=== PATIENT | female | born 1960 | race American Indian/Alaskan Native ===

== ENCOUNTER 2018-11-01 09:22 | Emergency (ER) | payer MEDICARE ==
[2018-11-01 09:57] LABS: Basophils # (Auto) 0.1 K/mm3 (0.0-0.1); Basophils % (Auto) 0.8 % (0.0-1.8); Eosinophils # (Auto) 0.3 K/mm3 (0.0-0.4); Eosinophils % (Auto) 2.6 % (0.0-4.3); Hematocrit 34.1 % (30.3-42.9); Hemoglobin 11.3 gm/dl (10.1-14.3); Lymphocytes # (Auto) 4.3 K/mm3 (1.2-5.4); Lymphocytes % (Auto) 40.5 % (13.4-35.0); Mean Corpuscular HGB Conc 33 % (30-34); Mean Corpuscular Volume 78 fl (79-97); Monocytes # (Auto) 0.7 K/mm3 (0.0-0.8); Monocytes % (Auto) 6.6 % (0.0-7.3); Platelet Count 424 K/mm3 (140-440); Red Blood Count 4.38 M/mm3 (3.65-5.03); Red Cell Distribution Width 15.5 % (13.2-15.2)
[2018-11-01 10:09] LABS: BUN/Creatinine Ratio 13; Blood Urea Nitrogen 13 mg/dL (7-17); Calcium 9.4 mg/dL (8.4-10.2); Hemolysis Index 6
[2018-11-01 10:18] LABS: Amphetamine Screen,Urine PRESUMPTIVE NEGATIVE; Benzodiazepines Screen,Urine PRESUMPTIVE NEGATIVE; Cannabinoid Screen,Urine PRESUMPTIVE NEGATIVE; Cocaine Screen,Urine PRESUMPTIVE NEGATIVE; Methadone Screen,Urine PRESUMPTIVE NEGATIVE; Opiate Screen,Urine PRESUMPTIVE NEGATIVE
[2018-11-01 10:19] LABS: Bacteria,Urine 1+ /HPF (Negative); Bilirubin,Urine NEG (Negative); Blood,Urine NEG (Negative); Color,Urine Yellow (Yellow); Mucus,Urine FEW /HPF
[2018-11-01] MEDS ORDERED: IBUPROFEN PO ONE (15:27)
[2018-11-01] MEDS ORDERED: ULTRAM PO ONE (15:27)
--- NOTE | 2018-11-01 15:29 | Emergency Department Report ---
HPI - General Chief Complaint: Psych Time Seen by Provider: 11/01/18 15:12 - HPI HPI: Room 18 The patient is a 57-year-old female presenting with a chief complaint of back pain and scratching. The patient is a history of schizophrenia and was reportedly brought in by her niece because the niece states the patient is "scratching herself again." The niece is not present at bedside during my interview and when I asked the patient why she came to the emergency department she states she has chronic back pain from a remote injury that occasionally "fla res up." Patient denies suicidal or homicidal ideation. Patient denies visual or auditory hallucinations Location: [See above] Duration: [See above] Quality: [See above] Severity: [See above] Modifying factors: [see above] Context: [see above] Mode of transportation: [not driving] ED Past Medical Hx - Past Medical History Hx Hypertension: Yes Hx Diabetes: Yes Hx Psychiatric Treatment: Yes (BIPOLAR /SCHIZO) - Family History Family history: no significant - Social History Smoking Status: Current Every Day Smoker (3 cigarettes daily) Substance Use Type: None (denies illicit drug use) - Medications Home Medications: Home Medications Medication Instructions Recorded Confirmed Last Taken Type AtorvaSTATin 40 mg PO BID 11/14/15 11/14/15 11/13/[address] 500 mg PO BID 11/14/15 11/14/15 11/13/15 History Levemir Flextouch 10 units SUB-Q BID 11/14/15 11/14/15 11/13/15 History Lisinopril 10 mg PO DAILY 11/14/15 11/14/15 11/13/15 History Trifluoperazine HCl 5 mg PO HS 11/14/15 11/14/15 11/13/15 History Ziprasidone 80 mg PO BID 11/14/15 11/14/15 11/13/15 History Zolpidem 10 mg PO HS 11/14/15 11/14/15 11/13/15 History clonazePAM 1 mg PO HS 11/14/15 11/14/15 11/13/15 History glipiZIDE 10 mg PO DAILY 11/14/15 11/14/15 11/13/15 History hydrOXYzine 25 mg PO TID 11/14/15 11/14/15 11/13/15 History Ibuprofen [Motrin 800 MG tab] 800 mg PO Q8HR PRN #20 tablet 11/01/18 Unknown Rx traMADol [Ultram] 50 mg PO Q6HR PRN #10 tablet 11/01/18 Unknown Rx ED Review of Systems ROS: Stated complaint: PYSCH EVALUATE Other details as noted in HPI Constitutional: no symptoms reported Eyes: denies: eye pain ENT: denies: throat pain Respiratory: no symptoms reported Cardiovascular: denies: chest pain Endocrine: no symptoms reported Gastrointestinal: denies: abdominal pain Genitourinary: denies: dysuria Musculoskeletal: back pain Neurological: denies: headache Psychiatric: denies: auditory hallucinations, visual hallucinations, homicidal thoughts, suicidal thoughts Physical Exam - Physical Exam Vital Signs: Vital Signs 11/01/18 11/01/18 11/01/18 09:28 14:48 14:53 Temperature 98.4 F Pulse Rate 94 H 87 Respiratory 18 18 18 Rate Blood Pressure 104/69 112/71 [Left] O2 Sat by Pulse 100 100 Oximetry Physical Exam: GENERAL: The patient is well-developed well-nourished female lying on stretcher not appearing to be in acute distress. [] HEENT: Normocephalic. Atraumatic. Extraocular motions are intact. Patient has moist mucous membranes. NECK: Supple. Trachea midline CHEST/LUNGS: Clear to auscultation. There is no respiratory distress noted. HEART/CARDIOVASCULAR: Regular. There is no tachycardia. There is no gallop rub or murmur. ABDOMEN: Abdomen is soft, nontender. Patient has normal bowel sounds. There is no abdominal distention. SKIN: There is a chronic appearing linear abrasion with various scabs present the midline mid and lower back. No bleeding. There is no diaphoresis. NEURO: The patient is awake, alert, and oriented. The patient is cooperative. The patient has normal speech MUSCULOSKELETAL: There is no evidence of acute injury. ED Course Vital Signs 11/01/18 11/01/18 11/01/18 09:28 14:48 14:53 Temperature 98.4 F Pulse Rate 94 H 87 Respiratory 18 18 18 Rate Blood Pressure 104/69 112/71 [Left] O2 Sat by Pulse 100 100 Oximetry - Consultations Consultation #1: 11/01/18 16:58 Case discussed with mental health renewable energy consultant Lidia- patient does not meet inpatient criteria ED Medical Decision Making - Lab Data Result diagrams: 11/01/18 09:34 11/01/18 09:34 Laboratory Tests 11/01/18 11/01/18 11/01/18 09:34 09:34 09:34 WBC RBC Hgb Hct MCV MCH MCHC RDW Plt Count Lymph % (Auto) [place] % (Auto) Eos % (Auto) Baso % (Auto) Lymph # [place] # Eos # Baso # Seg Neutrophils % Seg Neutrophils # Sodium 142 Potassium 3.7 Chloride 100.3 Carbon Dioxide 30 Anion Gap 15 BUN 13 Creatinine 1.0 Estimated GFR > 60 BUN/Creatinine Ratio 13 Glucose 237 H Calcium 9.4 Urine Color Urine Turbidity Urine pH Ur Specific [place] Urine Protein Urine Glucose (UA) Urine Ketones Urine Blood Urine Nitrite Urine Bilirubin Urine Urobilinogen Ur Leukocyte Esterase Urine WBC (Auto) Urine RBC (Auto) U Epithel Cells (Auto) Urine Bacteria (Auto) Urine Mucus Salicylates < 0.3 L Urine Opiates Screen Urine Methadone Screen Acetaminophen < 5.0 L Ur Barbiturates Screen Ur Phencyclidine Scrn Ur Amphetamines Screen U Benzodiazepines Scrn Urine Cocaine Screen U Marijuana (THC) Screen Drugs of Abuse Note Plasma/Serum Alcohol 11/01/18 11/01/18 11/01/18 09:34 09:34 09:52 WBC 10.7 RBC 4.38 Hgb 11.3 Hct 34.1 MCV 78 L MCH 26 L MCHC 33 RDW 15.5 H Plt Count 424 Lymph % (Auto) 40.5 H [place] % (Auto) 6.6 Eos % (Auto) 2.6 Baso % (Auto) 0.8 Lymph # 4.3 [place] # 0.7 Eos # 0.3 Baso # 0.1 Seg Neutrophils % 49.5 Seg Neutrophils # 5.3 Sodium Potassium Chloride Carbon Dioxide Anion Gap BUN Creatinine Estimated GFR BUN/Creatinine Ratio Glucose Calcium Urine Color Yellow Urine Turbidity Clear Urine pH 6.0 Ur Specific [place] 1.026 Urine Protein 30 mg/dl Urine Glucose (UA) Neg Urine Ketones Neg Urine Blood Neg Urine Nitrite Neg Urine Bilirubin Neg Urine Urobilinogen 4.0 Ur Leukocyte Esterase Tr Urine WBC (Auto) 2.0 Urine RBC (Auto) 5.0 U Epithel Cells (Auto) 3.0 Urine Bacteria (Auto) 1+ Urine Mucus Few Salicylates Urine Opiates Screen Urine Methadone Screen Acetaminophen Ur Barbiturates Screen Ur Phencyclidine Scrn Ur Amphetamines Screen U Benzodiazepines Scrn Urine Cocaine Screen U Marijuana (THC) Screen Drugs of Abuse Note Plasma/Serum Alcohol < 0.01 11/01/18 09:52 WBC RBC Hgb Hct MCV MCH MCHC RDW Plt Count Lymph % (Auto) [place] % (Auto) Eos % (Auto) Baso % (Auto) Lymph # [place] # Eos # Baso # Seg Neutrophils % Seg Neutrophils # Sodium Potassium Chloride Carbon Dioxide Anion Gap BUN Creatinine Estimated GFR BUN/Creatinine Ratio Glucose Calcium Urine Color Urine Turbidity Urine pH Ur Specific [place] Urine Protein Urine Glucose (UA) Urine Ketones Urine Blood Urine Nitrite Urine Bilirubin Urine Urobilinogen Ur Leukocyte Esterase Urine WBC (Auto) Urine RBC (Auto) U Epithel Cells (Auto) Urine Bacteria (Auto) Urine Mucus Salicylates Urine Opiates Screen Presumptive negative Urine Methadone Screen Presumptive negative Acetaminophen Ur Barbiturates Screen Presumptive negative Ur Phencyclidine Scrn Presumptive negative Ur Amphetamines Screen Presumptive negative U Benzodiazepines Scrn Presumptive negative Urine Cocaine Screen Presumptive negative U Marijuana (THC) Screen Presumptive negative Drugs of Abuse Note Disclamer Plasma/Serum Alcohol Critical care attestation.: If time is entered above; I have spent that time in minutes in the direct care of this critically ill patient, excluding procedure time. ED Disposition Clinical Impression: Back pain Disposition: DC-01 TO HOME OR SELFCARE Is pt being admited?: No Does the pt Need Aspirin: No Condition: Stable Instructions: Chronic Back Pain (ED) Additional Instructions: Return to the emergency department immediately should you develop worsening symptoms, fever, inability to tolerate food or liquid or any other concerns. Prescriptions: Ibuprofen [Motrin 800 MG tab] 800 mg PO Q8HR PRN #20 tablet PRN Reason: Pain, Moderate (4-6) traMADol [Ultram] 50 mg PO Q6HR PRN #10 tablet PRN Reason: Pain Referrals: TEDDY PETERS MD [Primary Care Provider] - 3-5 Days [facility] [Outside] - 3-5 Days Time of Disposition: 17:00
[2018-11-01 18:48] VITALS: BP 117/52
== END 2018-11-01 19:03 | disposition home or self-care (01) ==
LOC: ED 09:22
DX: M54.89 Other dorsalgia (principal); I10 Essential (primary) hypertension; E11.9 Type 2 diabetes mellitus without complications; F20.9 Schizophrenia, unspecified; F31.9 Bipolar disorder, unspecified; F17.210 Nicotine dependence, cigarettes, uncomplicated; Z79.899 Other long term (current) drug therapy
CPT/HCPCS: 36415; 80048; 80307; 81001; 85025; 99284; G0480; 80320

== ENCOUNTER 2019-03-04 12:29 | Inpatient (IN) | payer MEDICARE ==
[2019-03-04] MEDS ORDERED: ATIVAN IM PRN (15:04)
[2019-03-04] MEDS ORDERED: BENADRYL IM PRN (15:05)
[2019-03-04] MEDS ORDERED: HYDROXYZINE 25 MG PO SCH (20:00)
[2019-03-04] MEDS ORDERED: D50W (25GM) Syringe IV PRN (20:31)
[2019-03-04] MEDS: AMBIEN PO SCH (21:10)
[2019-03-04] MEDS: VISTARIL PO SCH (21:10)
[2019-03-04] MEDS: GEODON PO SCH (21:10)
[2019-03-04] MEDS: HumuLIN R SUB-Q SCH (21:33)
[2019-03-04] MEDS ORDERED: TRIFLUOPERAZINE HCL 5 MG PO SCH (22:00)
[2019-03-04] MEDS ORDERED: HumuLIN R SUB-Q SCH (22:00)
[2019-03-04] MEDS ORDERED: ZOLPIDEM 10 MG PO SCH (22:00)
[2019-03-04] MEDS ORDERED: ZIPRASIDONE 80 MG PO SCH (22:00)
[2019-03-04] MEDS ORDERED: DIVALPROEX 500 MG PO SCH (22:00)
[2019-03-04] MEDS ORDERED: NON-FORMULARY (Clonazepam 1 MG) PO SCH (22:00)
[2019-03-05 01:37] LABS: Alanine Aminotransferase 9 units/L (7-56); Albumin 3.5 g/dL (3.9-5); BUN/Creatinine Ratio 10; Blood Urea Nitrogen 9 mg/dL (7-17); Calcium 8.9 mg/dL (8.4-10.2); Hemolysis Index 1
[2019-03-05] MEDS: HumuLIN R SUB-Q SCH ×4 (11:36→22:59)
[2019-03-05] MEDS: VISTARIL PO SCH ×3 (12:16→20:29)
[2019-03-05] MEDS: GEODON PO SCH ×2 (15:20→21:16)
--- NOTE | 2019-03-05 17:21 | History and Physical Report ---
GP History & Physical - History of Present Illness Date of admission: 03/04/19 Date of Examination: 03/05/19 Reason for Admission: Danger to self, Impaired reality testing, Psychopathology interference, Unable to care for self Chief Complaint: Suicidal History of Present Illness: The patient is a 58yo female with history of Schizophrenia, Bipolar disorder, HTN and DM. She was transferred form [facility]. She presents with refusing to eat food, take medications and making herself vomit by thrusting her fingers down her throat. In my interview with the patient, she endorses suicidal thoughts and auditory hallucinations. She is a poor historian and could not elaborate further. Legal Status: Voluntary Patient Problems: Current Active Problems Schizoaffective disorder, bipolar type (Acute) Reaction to Hospitalization: Accepting Substance History - Substance History Drug Use: none Hx Tobacco Use: Yes Alcohol Use: No Past psychiatric history - Past Medical History Past Medical History: diabetes, hypertension - past Psychiatric treatment and history Psych: Bipolar, Schizophrenia Review of Systems Constitutional: poor appetite, chronic pain Gastrointestinal: vomiting Psychiatric: suicidal ideation, hallucinations Results - Results Labs/Vitals: Laboratory Last Values Sodium 134 mmol/L (137-145) L 03/05/19 00:26 Potassium 3.0 mmol/L (3.6-5.0) L 03/05/19 00:26 Chloride 92.8 mmol/L (98-107) L 03/05/19 00:26 Carbon Dioxide 32 mmol/L (22-30) H 03/05/19 00:26 12 mmol/L 03/05/19 00:26 BUN 9 mg/dL (7-17) 03/05/19 00:26 0.9 mg/dL (0.7-1.2) 03/05/19 00:26 Estimated GFR > 60 ml/min 03/05/19 00:26 10 % 03/05/19 00:26 Glucose 267 mg/dL (65-100) H 03/05/19 00:26 POC Glucose 177 (70-105) H 03/05/19 16:30 Calcium 8.9 mg/dL (8.4-10.2) 03/05/19 00:26 0.50 mg/dL (0.1-1.2) 03/05/19 00:26 AST 13 units/L (5-40) 07/12/19 00:26 ALT 9 units/L (7-56) 03/05/19 00:26 70 units/L (35-129) 03/05/19 00:26 6.3 g/dL (6.3-8.2) 03/05/19 00:26 3.5 g/dL (3.9-5) L 03/05/19 00:26 1.3 % 03/05/19 00:26 Valproic Acid 20.2 ug/mL (50-100) L 03/05/19 00:26 Last Vital Signs Temp 98.2 F 03/05/19 00:46 Pulse 80 03/05/19 00:46 Resp 18 03/05/19 00:46 BP 103/65 03/05/19 00:46 Pulse Ox 100 03/05/19 00:46 Physical Examination - Constitutional Vitals: Vital Signs Temp Pulse Resp BP Pulse Ox 98.2 F 80 18 103/65 100 03/05/19 00:46 03/05/19 00:46 03/05/19 00:46 03/05/19 00:46 03/05/19 00:46 Temperature -Last 24 Hours Temperature 98.2 F Temperature 98.2 F General appearance: Present: no acute distress, well-nourished - EENT Eyes: Present: PERRL, EOM intact ENT: hearing intact, clear oral mucosa - Neck Neck: Present: supple, normal ROM - Respiratory Respiratory effort: normal Mental Status Exam - Vital signs Last Vital Signs Temp 98.2 F 03/05/19 00:46 Pulse 80 03/05/19 00:46 Resp 18 03/05/19 00:46 BP 103/65 03/05/19 00:46 Pulse Ox 100 03/05/19 00:46 - Exam Orientation: place, person Affect: anxious, agitated Mood: congruent with affect Thought content: delusions, paranoia Thought Process: Disorganized Perceptions: hallucinations Speech: paucity Concentration: distractible Motor activity: agitated Level of consciousness: alert Memory: Intact Sleep Symptoms: None Interaction: uncooperative Assessment and Plan - Psychiatric problem (1) Schizoaffective disorder, bipolar type Current Visit: Yes Status: Acute plan to address problem: Patient will be admitted for inpatient psychiatric evaluation, medication adjustment and close monitoring The patient's behavior, mood, sleep and appetite will be closely monitored. Patient will be enrolled in individual and group therapeutic sessions and encouraged to attend. Patient will be provided with a safe and structured environment. Patient's physical health needs will be addressed by the Hospitalist. Social Assessment will be completed and the Carton Gluing Machine Operator will work with patient and family to ensure a suitable and safe disposition Medication adjustment will be made as clinically indicated The patient agreed on the treatment plan, understood the risk, benefit, alternative treatment, potential consequence of no treatment, and gave informed consent. Physician Certification - Certification Statement Physician Certification Statement: This is an acknowledgement statement that TIMOTEO BRICENO is a 58 year old F who requires inpatient psychiatric admission for treatment which could reasonably be expected to improve the patient's condition for Schizoaffective disorder Estimated period of time patient will need to remain in the hospital: 7 days Plan for post-hospital care: Out patient care
[2019-03-05] MEDS ORDERED: THORAZINE IM PRN (17:25)
[2019-03-05] MEDS: AMBIEN PO SCH (21:16)
[2019-03-06] MEDS: HumuLIN R SUB-Q SCH ×4 (08:00→22:45)
[2019-03-06] MEDS: GEODON PO SCH ×2 (13:03→22:59)
[2019-03-06] MEDS: VISTARIL PO SCH ×3 (13:03→21:20)
--- NOTE | 2019-03-06 13:06 | Consultation ---
History of Present Illness - Reason for Consult Consult date: 03/06/19 DM Requesting physician: SEMAJ RAMOS - History of Present Illness The patient is a 58-year-old female admitted to the [facility] psych unit for pleasant a danger to herself, impaired reality testing cycle Ronald interference and unable to care for herself. The patient was transferred from [facility] according to the documentation refusing to eat food or take any medications and also inducing herself to vomit by trust in her fingers, controlled. We'll consulted to manage her medical conditions while she is here in the facility. The patient reports that she is a current every day smoker about 3 cigarettes daily but denies any need for nicotine patch at this time. She also complains of back pain which she initially did not complain to me by the nurse wanted to my attention across that wound on her back which appears to be in the healing process. It appears that she may have caused this to her so she could not provide any information as to how this happened. Otherwise she denies any other new complaints or denies any chest pain nausea vomiting or diarrhea. No family present at this time. Recommended to prior reports that he has but this was noted during her last visit of her [facility] patient will scratching herself. The area does not appear to be infected at this time. Medical/Psych history: Is affective disorder, schizophrenia, bipolar disorder, hypertension, diabetes mellitus, Past History Past Medical History: diabetes, hypertension Past Surgical History: No surgical history Social history: no significant social history, smoking, full code Family history: no significant family history Medications and Allergies Allergies Allergy/AdvReac Type Severity Reaction Status Date / Time tramadol Allergy Unknown Unknown Verified 03/06/19 12:34 Home Medications Medication Instructions Recorded Confirmed Last Taken Type AtorvaSTATin 40 mg PO BID 11/14/15 11/14/15 11/13/[address] 500 mg PO BID 11/14/15 11/14/15 11/13/15 History Levemir Flextouch 10 units SUB-Q BID 11/14/15 11/14/15 11/13/15 History Lisinopril 10 mg PO DAILY 11/14/15 11/14/15 11/13/15 History Trifluoperazine HCl 5 mg PO HS 11/14/15 11/14/15 11/13/15 History Ziprasidone 80 mg PO BID 11/14/15 11/14/15 11/13/15 History Zolpidem 10 mg PO HS 11/14/15 11/14/15 11/13/15 History clonazePAM 1 mg PO HS 11/14/15 11/14/15 11/13/15 History glipiZIDE 10 mg PO DAILY 11/14/15 11/14/15 11/13/15 History hydrOXYzine 25 mg PO TID 11/14/15 11/14/15 11/13/15 History Ibuprofen [Motrin 800 MG tab] 800 mg PO Q8HR PRN #20 tablet 11/01/18 Unknown Rx traMADol [Ultram] 50 mg PO Q6HR PRN #10 tablet 11/01/18 Unknown Rx Active Meds: Active Medications Chlorpromazine HCl (Thorazine) 50 mg IM Q6H PRN PRN Reason: Agitation Clonazepam (Klonopin) 1 mg PO QHS [facility] Last Admin: 03/05/19 21:16 Dose: 1 mg Documented by: Dextrose (D50w (25gm) Syringe) 50 ml IV PRN PRN PRN Reason: Hypoglycemia Diphenhydramine HCl (Benadryl) 50 mg IM ONCE PRN PRN Reason: Agitation Divalproex Sodium (Depakote Dr) 500 mg PO BID [facility] Last Admin: 03/05/19 21:16 Dose: 500 mg Documented by: Hydroxyzine Pamoate (Vistaril) 25 mg PO TID [facility] Last Admin: 03/05/19 20:29 Dose: 25 mg Documented by: Insulin Human Regular (Humulin R) 0 units SUB-Q [facility]; Protocol Last Admin: 03/05/19 22:59 Dose: 6 units Documented by: Lorazepam (Ativan) 2 mg IM Q6H PRN PRN Reason: Agitation Ziprasidone (Geodon) 80 mg PO BID [facility] Last Admin: 03/05/19 21:16 Dose: 80 mg Documented by: Zolpidem Tartrate (Ambien) 10 mg PO QHS [facility] Last Admin: 03/05/19 21:16 Dose: 10 mg Documented by: Review of Systems All systems: negative Constitutional: no weight loss, no weight gain, no fever, no chills, no sweats Ears, nose, mouth and throat: nasal congestion, nasal discharge Cardiovascular: no chest pain, no orthopnea, no palpitations Respiratory: no cough, no cough with sputum, no excessive sputum, no hemoptysis, no congestion, no wheezing, no pleurisy Gastrointestinal: no nausea, no diarrhea, no change in bowel habits, no hematemesis, no hematochezia, no loss of appetite Musculoskeletal: no neck pain, no shooting arm pain, no low back pain, no shooting leg pain, no muscle weakness, no muscle cramps, no myalgias, no fractures, no loss of height Integumentary: redness, sores, wounds Neurological: no head injury, no paralysis, no numbness, no tingling Psychiatric: paranoia, depression, no change in sleep habits, no insomnia Endocrine: no heat intolerance, no excessive thirst, no polyuria Hematologic/Lymphatic: no easy bruising Allergic/Immunologic: no urticaria, no wheezing Exam - Physical Exam Narrative exam: VITAL SIGNS: Reviewed. GENERAL: The patient appears normally developed, Vital signs as documented. HEAD: No signs of head trauma. EYES: Pupils are equal. Extraocular motions intact. EARS: Hearing grossly intact. MOUTH: Oropharynx is normal. NECK: No adenopathy, no JVD. CHEST: Chest with clear breath sounds bilaterally. No wheezes, rales, or rhonchi. CARDIAC: Regular rate and rhythm. S1 and S2, without murmurs, gallops, or rubs. VASCULAR: No Edema. Peripheral pulses normal and equal in all extremities. ABDOMEN: Soft, non tender and non distended. No rebound or guarding, and no masses palpated. Bowel Sounds normal. MUSCULOSKELETAL: Good range of motion of all major joints. Extremities without clubbing, cyanosis or edema. NEUROLOGIC EXAM: Alert and oriented x 3 No focal sensory or strength deficits. Speech normal. Follows commands. PSYCHIATRIC: Mood normal. SKIN: detail exam as documented in skin assessment, except asthma. Excoriation dime-sized lesion on the back well healed but appears to be irritated no erythema or warmth noted. - Constitutional Vitals: Temp Pulse Resp BP Pulse Ox 97.9 F 110 H 16 120/79 97 03/05/19 19:45 03/05/19 19:45 03/05/19 19:45 03/05/19 19:45 03/05/19 19:45 Results - Labs CBC & Chem 7: 03/05/19 00:26 Labs: Abnormal lab results 03/05/19 03/05/19 03/06/19 Range/Units 16:30 19:44 07:02 POC Glucose 177 H 336 H 212 H (70-105) 03/06/19 Range/Units 11:51 POC Glucose 254 H (70-105) Assessment and Plan The patient is a 58-year-old female admitted to the [facility] psych unit for pleasant a danger to herself, impaired reality testing cycle Ronald interference and unable to care for herself. The patient was transferred from [facility] according to the documentation refusing to eat food or take any medications and also inducing herself to vomit by trust in her fingers, controlled. We'll consulted to manage her medical conditions while she is here in the facility. The patient reports that she is a current every day smoker about 3 cigarettes daily but denies any need for nicotine patch at this time. She also complains of back pain which she initially did not complain to me by the nurse wanted to my attention across that wound on her back which appears to be in the healing process. It appears that she may have caused this to her so she could not provide any information as to how this happened. Otherwise she denies any other new complaints or denies any chest pain nausea vomiting or diarrhea. No family present at this time. Recommended to prior reports that he has but this was noted during her last visit of her [facility] patient will scratching herself. The area does not appear to be infected at this time. Sacral ulcer unstageable process of healing schizophrenia bipolar disorder hypertension, diabetes mellitus, Recommendation I have updated the medication reconcillation Continue to monitor wound site, keep dry considering patient self vomiting inducing monitor Blood glucose closely to prevent hypoglycemia Other management per Pysch team Thank you for the consult. Will sign off at this time. Please recall if needed.
[2019-03-06] MEDS: AMBIEN PO SCH (21:20)
--- NOTE | 2019-03-06 21:27 | Progress Note ---
Subjective Date of service: 03/06/19 Principal diagnosis: Schizoaffective disorder, bipolar type Subjective Comment: The patient continues to push her fingers down her throat. She is disorganized and disruptive. She endorses suicidal thoughts and auditory hallucinations. Objective - Criteria for Continued Treatment Criteria for Continued Treatment: Improving Level of Functioning, Stablizing Level of Functioning, Improving Emotional/Socia, Decreasing Frequency of Hospitalization - Mental Status Mental Status: Oriented x [address] - Objective Observation Participation Level: Minimal Assessment and Plan - Patient Problems (1) Schizoaffective disorder, bipolar type Current Visit: Yes Status: Acute Plan to address problem: Patient will be admitted for inpatient psychiatric evaluation, medication adjustment and close monitoring The patient's behavior, mood, sleep and appetite will be closely monitored. Patient will be enrolled in individual and group therapeutic sessions and encouraged to attend. Patient will be provided with a safe and structured environment. Patient's physical health needs will be addressed by the Hospitalist. Social Assessment will be completed and the Spool Carrier will work with patient and family to ensure a suitable and safe disposition Medication adjustment will be made as clinically indicated Thorazine IM was added The patient agreed on the treatment plan, understood the risk, benefit, alternative treatment, potential consequence of no treatment, and gave informed consent.
[2019-03-06] MEDS ORDERED: ALUM-MAG HYDROX-SIMETH 200-200-20MG/5ML PO PRN (21:55)
[2019-03-06] MEDS ORDERED: LEVEMIR 10 UNIT SUB-Q SCH (22:00)
[2019-03-06] MEDS: LANTUS SUB-Q SCH (22:47)
[2019-03-07] MEDS: HumuLIN R SUB-Q SCH ×4 (08:30→23:35)
[2019-03-07] MEDS: GLUCOTROL PO SCH (09:07)
[2019-03-07] MEDS: VISTARIL PO SCH ×3 (09:08→21:03)
[2019-03-07] MEDS: GEODON PO SCH ×2 (09:08→21:04)
[2019-03-07] MEDS: ZESTRIL PO SCH (09:09)
[2019-03-07] MEDS: LANTUS SUB-Q SCH ×2 (09:18→23:08)
[2019-03-07] MEDS ORDERED: NON-FORMULARY (Glipizide 10 MG) PO SCH (10:00)
[2019-03-07] MEDS ORDERED: NON-FORMULARY (Lisinopril 10 MG) PO SCH (10:00)
--- NOTE | 2019-03-07 10:28 | Progress Note ---
Subjective Date of service: 03/07/19 Principal diagnosis: Schizoaffective disorder, bipolar type Subjective Comment: The patient continues to push her fingers down her throat. She is disorganized and disruptive. She endorses suicidal thoughts and auditory hallucinations. Objective - Criteria for Continued Treatment Criteria for Continued Treatment: Improving Level of Functioning, Reducing Isolative Behaviors, Stablizing Level of Functioning, Improving Emotional/Socia - Mental Status Mental Status: Alert - Objective Observation Participation Level: Minimal Assessment and Plan - Patient Problems (1) Schizoaffective disorder, bipolar type Current Visit: Yes Status: Acute Plan to address problem: Patient will be admitted for inpatient psychiatric evaluation, medication adjustment and close monitoring The patient's behavior, mood, sleep and appetite will be closely monitored. Patient will be enrolled in individual and group therapeutic sessions and encouraged to attend. Patient will be provided with a safe and structured environment. Patient's physical health needs will be addressed by the Hospitalist. Social Assessment will be completed and the Casing Sewer will work with patient and family to ensure a suitable and safe disposition Medication adjustment will be made as clinically indicated The patient agreed on the treatment plan, understood the risk, benefit, alternative treatment, potential consequence of no treatment, and gave informed consent.
[2019-03-07] MEDS: AMBIEN PO SCH (21:05)
[2019-03-08] MEDS: GLUCOTROL PO SCH (08:13)
[2019-03-08] MEDS: HumuLIN R SUB-Q SCH ×4 (10:18→21:13)
[2019-03-08] MEDS: LANTUS SUB-Q SCH ×2 (10:31→21:12)
[2019-03-08] MEDS: GEODON PO SCH ×2 (12:36→21:11)
[2019-03-08] MEDS: VISTARIL PO SCH ×3 (12:48→20:16)
[2019-03-08] MEDS: ZESTRIL PO SCH (12:51)
--- NOTE | 2019-03-08 20:50 | Progress Note ---
Subjective Date of service: 03/08/19 Principal diagnosis: Schizoaffective disorder, bipolar type Subjective Comment: No major improvement. She continues to push her fingers down her throat and vomit. She is disorganized and disruptive. She endorses suicidal thoughts and auditory hallucinations. Objective - Criteria for Continued Treatment Criteria for Continued Treatment: Improving Level of Functioning, Reducing Isolative Behaviors, Stablizing Level of Functioning, Improving Emotional/Socia - Mental Status Mental Status: Alert - Objective Observation Participation Level: Minimal Assessment and Plan - Patient Problems (1) Schizoaffective disorder, bipolar type Current Visit: Yes Status: Acute Plan to address problem: Patient will be admitted for inpatient psychiatric evaluation, medication adjustment and close monitoring The patient's behavior, mood, sleep and appetite will be closely monitored. Patient will be enrolled in individual and group therapeutic sessions and encouraged to attend. Patient will be provided with a safe and structured environment. Patient's physical health needs will be addressed by the Hospitalist. Social Assessment will be completed and the Window Dresser will work with patient and family to ensure a suitable and safe disposition Medication adjustment will be made as clinically indicated Will add Thorazine 25mg tid for psychosis and agitation The patient agreed on the treatment plan, understood the risk, benefit, alternative treatment, potential consequence of no treatment, and gave informed consent.
[2019-03-08] MEDS: AMBIEN PO SCH (21:11)
[2019-03-09] MEDS: HumuLIN R SUB-Q SCH ×4 (07:20→21:32)
[2019-03-09] MEDS: VISTARIL PO SCH ×3 (07:21→19:56)
[2019-03-09] MEDS: GLUCOTROL PO SCH (07:21)
[2019-03-09] MEDS: THORAZINE PO SCH ×3 (07:21→19:53)
--- NOTE | 2019-03-09 08:35 | Progress Note ---
Subjective Date of service: 03/09/19 Principal diagnosis: Schizoaffective disorder, bipolar type Subjective Comment: Patient is calm and more interactive this morning. She has not pushed her hand down her throat for over 24 hours. She is still disorganized and continues to endorse auditory hallucinations but denies SI/HI Objective - Criteria for Continued Treatment Criteria for Continued Treatment: Improving Level of Functioning, Stablizing Level of Functioning, Improving Emotional/Socia, Decreasing Frequency of Hospitalization - Mental Status Mental Status: Alert - Objective Observation Participation Level: Moderate Assessment and Plan - Patient Problems (1) Schizoaffective disorder, bipolar type Current Visit: Yes Status: Acute Plan to address problem: Patient will be admitted for inpatient psychiatric evaluation, medication adjustment and close monitoring The patient's behavior, mood, sleep and appetite will be closely monitored. Patient will be enrolled in individual and group therapeutic sessions and encouraged to attend. Patient will be provided with a safe and structured environment. Patient's physical health needs will be addressed by the Hospitalist. Social Assessment will be completed and the Wincher will work with patient and family to ensure a suitable and safe disposition Medication adjustment will be made as clinically indicated Thorazine 25mg tid was added yesterday 03/08 for psychosis and agitation The patient agreed on the treatment plan, understood the risk, benefit, alternative treatment, potential consequence of no treatment, and gave informed consent.
[2019-03-09] MEDS: LANTUS SUB-Q SCH ×2 (10:34→21:33)
[2019-03-09] MEDS: ZESTRIL PO SCH (10:39)
[2019-03-09] MEDS: GEODON PO SCH ×2 (10:40→21:31)
[2019-03-09] MEDS: AMBIEN PO SCH (21:31)
--- NOTE | 2019-03-10 08:27 | Progress Note ---
Subjective Date of service: 03/10/19 Principal diagnosis: Schizoaffective disorder, bipolar type Subjective Comment: Patient is remarkably improved. She is pleasant, joking and smiling. She has no urge to shove her hand down her throat. She denies SI/HI/AVH/Paranoia. She is compliant with medications and denies side effects. Will plan to discharge her in am tomorrow if she continues to do well. Objective - Criteria for Continued Treatment Criteria for Continued Treatment: Stablizing Level of Functioning - Mental Status Mental Status: Alert - Objective Observation Participation Level: Full Assessment and Plan - Patient Problems (1) Schizoaffective disorder, bipolar type Current Visit: Yes Status: Acute Plan to address problem: Patient will be admitted for inpatient psychiatric evaluation, medication adjus tment and close monitoring The patient's behavior, mood, sleep and appetite will be closely monitored. Patient will be enrolled in individual and group therapeutic sessions and encouraged to attend. Patient will be provided with a safe and structured environment. Patient's physical health needs will be addressed by the Hospitalist. Social Assessment will be completed and the Stucco Plasterer will work with patient and family to ensure a suitable and safe disposition Medication adjustment will be made as clinically indicated Thorazine 25mg tid was added 03/08 for psychosis and agitation The patient agreed on the treatment plan, understood the risk, benefit, alternative treatment, potential consequence of no treatment, and gave informed consent.
[2019-03-10] MEDS: HumuLIN R SUB-Q SCH ×4 (08:47→21:57)
[2019-03-10] MEDS: GLUCOTROL PO SCH (08:47)
[2019-03-10] MEDS: THORAZINE PO SCH ×3 (08:48→20:33)
[2019-03-10] MEDS: GEODON PO SCH ×2 (09:12→21:57)
[2019-03-10] MEDS: ZESTRIL PO SCH (09:13)
[2019-03-10] MEDS: VISTARIL PO SCH ×3 (10:03→20:33)
[2019-03-10] MEDS: LANTUS SUB-Q SCH ×2 (10:04→21:57)
[2019-03-10] MEDS: AMBIEN PO SCH (21:57)
[2019-03-11] MEDS: GLUCOTROL PO SCH (08:35)
[2019-03-11] MEDS: HumuLIN R SUB-Q SCH ×4 (08:55→22:44)
[2019-03-11] MEDS: VISTARIL PO SCH ×3 (09:01→20:45)
[2019-03-11] MEDS: GEODON PO SCH ×2 (09:01→21:25)
[2019-03-11] MEDS: THORAZINE PO SCH ×3 (09:02→20:44)
[2019-03-11] MEDS: ZESTRIL PO SCH (09:04)
[2019-03-11] MEDS: LANTUS SUB-Q SCH ×2 (09:10→22:45)
--- NOTE | 2019-03-11 16:56 | Progress Note ---
Subjective Date of service: 03/11/19 Principal diagnosis: Schizoaffective disorder, bipolar type Subjective Comment: Patient had an episode of shoving her hand down her throat last night. She is calm and pleasant this morning. She has no urge to shove her hand down her throat. She denies SI/HI/AVH/Paranoia. She is compliant with medications and denies side effects. Will plan to discharge her in am tomorrow if she continues to do well. Objective - Criteria for Continued Treatment Criteria for Continued Treatment: Improving Level of Functioning, Stablizing Level of Functioning, Improving Emotional/Socia - Mental Status Mental Status: Alert - Objective Observation Participation Level: Full Assessment and Plan - Patient Problems (1) Schizoaffective disorder, bipolar type Current Visit: Yes Status: Acute Plan to address problem: Patient will be admitted for inpatient psychiatric evaluation, medication adjustment and close monitoring The patient's behavior, mood, sleep and appetite will be closely monitored. Patient will be enrolled in individual and group therapeutic sessions and encouraged to attend. Patient will be provided with a safe and structured environment. Patient's physical health needs will be addressed by the Hospitalist. Social Assessment will be completed and the Meatcutter will work with patient and family to ensure a suitable and safe disposition Medication adjustment will be made as clinically indicated Increase Thorazine to 50mg tid for psychosis and agitation The patient agreed on the treatment plan, understood the risk, benefit, alternative treatment, potential consequence of no treatment, and gave informed consent.
[2019-03-11] MEDS: AMBIEN PO SCH (21:24)
--- NOTE | 2019-03-12 09:40 | Discharge Summary ---
Providers - Providers Date of Admission: 03/04/19 13:29 Date of discharge: 03/12/19 Attending physician: SEMAJ RAMOS MD 03/04/19 13:29 Consult to Physician [CONS] Routine Comment: Consulting Provider: ANNE ANN Physician Instructions: Reason For Exam: MEDICAL MANAGEMENT H & P 03/04/19 20:31 Consult to Dietitian/Nutrition [CONS] Routine Physician Instructions: Reason For Exam: Reason for Consult: Diet education [facility] Reason for admission: refusing to eat food, take medications and making herself vomit Condition: Good Hospital course: The patient was provided inpatient psychiatric treatment with safe and supportive environment, group therapy, individual counseling, psychiatric medication, medication adjustment, adverse effect monitor, medical evaluation, medical treatment, social service assessment, family/social support meeting, placement assessment and psycho-education. The patients mood, anxiety, thoughts, stress management skill, cognition, impulse/anger control, motivation, understanding of disease, compliance to treatment and appreciation on family/social support are improved and stabilized. At the time of discharge, the patient had no suicidal ideas, no homicidal ideas, no aggressive thoughts, no endangering behavior and no debilitating adverse effects. The patient's family agreed on the treatment plan, understood the risk, benefit, alternative treatment, potential consequence of no treatment, and gave informed consent. The patient was advised to be compliant with medications, not to use drugs and not to drink alcohol. The patient understands that if suicidal ideas, homicidal ideas, or any endangering thoughts arise, the patient should immediately seek for emergent assistance including but not limited to crisis hot line and emergency room. Follow up with out-patient Psychiatrist and PCP within 14 - 21 days of discharge. Disposition: DC-01 TO HOME OR SELFCARE Time spent for discharge: 36 mins Allergies/Adverse Reactions: Allergies tramadol Allergy (Unknown, Verified 03/06/19 12:34) Unknown Vital Signs: Last Vital Signs Temp 98.6 F 03/12/19 08:00 Pulse 106 H 03/12/19 08:00 Resp 18 03/12/19 08:00 BP 157/84 03/12/19 08:00 Pulse Ox 98 03/12/19 08:00 Last Lab: Laboratory Last Values Sodium 134 mmol/L (137-145) L 03/05/19 00:26 Potassium 3.0 mmol/L (3.6-5.0) L 03/05/19 00:26 Chloride 92.8 mmol/L (98-107) L 03/05/19 00:26 Carbon Dioxide 32 mmol/L (22-30) H 03/05/19 00:26 12 mmol/L 03/05/19 00:26 BUN 9 mg/dL (7-17) 03/05/19 00:26 0.9 mg/dL (0.7-1.2) 03/05/19 00:26 Estimated GFR > 60 ml/min 03/05/19 00:26 10 % 03/05/19 00:26 Glucose 267 mg/dL (65-100) H 03/05/19 00:26 POC Glucose 121 (70-105) H 03/12/19 08:13 Calcium 8.9 mg/dL (8.4-10.2) 03/05/19 00:26 0.50 mg/dL (0.1-1.2) 03/05/19 00:26 AST 13 units/L (5-40) 03/05/19 00:26 ALT 9 units/L (7-56) 03/05/19 00:26 70 units/L (35-129) 03/05/19 00:26 6.3 g/dL (6.3-8.2) 03/05/19 00:26 3.5 g/dL (3.9-5) L 03/05/19 00:26 1.3 % 03/05/19 00:26 Valproic Acid 20.2 ug/mL (50-100) L 03/05/19 00:26 - Discharge Diagnoses (1) Schizoaffective disorder, bipolar type Status: Acute Core Measure Documentation - Palliative Care Palliative Care/ Comfort Measures: Not Applicable - Core Measures Any of the following diagnoses?: none Exam - Constitutional Vitals: Temp Pulse Resp BP Pulse Ox 98.6 F 106 H 18 157/84 98 03/12/19 08:00 03/12/19 08:00 03/12/19 08:00 03/12/19 08:00 03/12/19 08:00 General appearance: Present: no acute distress, well-nourished - EENT Eyes: Present: PERRL, EOM intact ENT: hearing intact, clear oral mucosa - Neck Neck: Present: supple, normal ROM - Respiratory Respiratory effort: normal Plan Activity: no restrictions Weight Bearing Status: Weight Bear as Tolerated Diet: regular [facility] [Primary Care Provider] - 7 Days Prescriptions: clonazePAM [KlonoPIN] 1 mg PO QHS #[address] [Depakote Dr] 500 mg PO BID #60 tablet chlorproMAZINE [Thorazine] 50 mg PO TID #90 tablet
[2019-03-12] MEDS: THORAZINE PO SCH (09:43)
[2019-03-12] MEDS: GEODON PO SCH (09:44)
[2019-03-12] MEDS: GLUCOTROL PO SCH (09:44)
[2019-03-12] MEDS: VISTARIL PO SCH (09:44)
[2019-03-12] MEDS: ZESTRIL PO SCH (09:45)
[2019-03-12 09:46] VITALS: BP 156/95
[2019-03-12] MEDS: HumuLIN R SUB-Q SCH ×2 (10:16→14:00)
[2019-03-12] MEDS: LANTUS SUB-Q SCH (10:16)
== END 2019-03-12 14:28 | disposition home or self-care (01) | DRG 885 ==
LOC: UNDOADMIN 12:29 → 3A 12:29 → 5A 13:29
PROVIDERS: ADMIT Psychiatry & Neurology Psychiatry; ATTEND Psychiatry & Neurology Psychiatry
DX: F25.0 Schizoaffective disorder, bipolar type (principal); F41.9 Anxiety disorder, unspecified; E11.9 Type 2 diabetes mellitus without complications; L89.150 Pressure ulcer of sacral region, unstageable; I10 Essential (primary) hypertension; Z79.899 Other long term (current) drug therapy
CPT/HCPCS: 36415; 80053; 80164; 82962; G0378; A9270-GY; J1815; J3230; Q0161; Q0177